=== PATIENT | male | born 1960 ===

== ENCOUNTER 2021-07-13 16:12 | Emergency (ER) | payer SELFPAY ==
[~2021-07-13] VITALS: Ht 167.6 cm; Wt 68.0 kg
[2021-07-13] MEDS ORDERED: SODIUM CHLORIDE 0.9% 1,000 ML IV ONE (16:30)
[2021-07-13 16:40] VITALS: BP 107/68
[2021-07-13 17:11] LABS: Basophils # (auto) 0 10 ^3/uL (0-0.2); Basophils % (auto) 0.8 % (0.0-2.0); Eosinophils # (auto) 0 10 ^3/uL (0-0.8); Eosinophils % (auto) 0.7 % (0.0-7.0); Hematocrit 40.7 % (41.0-53.0); Hemoglobin 13.5 g/dL (13.5-17.5); Lymphocytes # (auto) 1.6 10 ^3/uL (0.4-5.4); Lymphocytes % (auto) 32.1 % (10.0-50.0); Mean Corpuscular Hemoglobin 27.4 pg (28.0-32.0); Mean Corpuscular Hgb Conc. 33.1 g/dL (32.0-36.0); Mean Corpuscular Volume 82.6 fL (80.0-100.0); Monocytes # (auto) 0.3 10 ^3/uL (0-1.3); Monocytes % (auto) 6.5 % (0.0-12.0); Neutrophils # (auto) 2.9 10 ^3/uL (1.6-8.6); Neutrophils % (auto) 59.9 % (37.0-80.0); Nucleated Red Blood Cells % 0.1 %; Red Blood Cells 4.93 10^6/uL (4.5-5.90); Red Cell Distribution Width 15.6 % (11.8-14.3); White Blood Cell 4.9 10^3/uL (4.4-10.8)
[2021-07-13 17:34] LABS: Albumin 3.6 g/dL (3.4-5.0); Calcium 8.4 mg/dL (8.5-10.1); Potassium 3.9 mmol/L (3.5-5.1)
[2021-07-13 17:36] LABS: Amphetamine Screen, Urine NEGATIVE (NEGATIVE); Barbiturate Scree,Urine NEGATIVE (NEGATIVE); Benzodiazephine Screen, Urine NEGATIVE (NEGATIVE); Cannabinoid Screen, Urine NEGATIVE (NEGATIVE); Cocaine Screen, Urine NEGATIVE (NEGATIVE); Opiate Scree,Urine NEGATIVE (NEGATIVE); Phencyclidine Screen, Urine NEGATIVE (NEGATIVE)
[2021-07-13 17:39] LABS: BUN/Creatinine Ratio 13.2; Bilirubin, Total 0.4 mg/dL (0.2-1.0)
== END 2021-07-13 21:18 | disposition home or self-care (01) ==
LOC: EDBD 16:12 → ER 16:12
DX: F10.129 Alcohol abuse with intoxication, unspecified (principal); R51.9 Headache, unspecified; E11.9 Type 2 diabetes mellitus without complications; Y90.6 Blood alcohol level of 120-199 mg/100 ml
CPT/HCPCS: 36415; 70450; 80053; 80307; 80320; 85025; 96360; 96361; 99284; J7030

== ENCOUNTER 2023-08-19 10:14 | Emergency (ER) | payer SELFPAY ==
[~2023-08-19] VITALS: Ht 152.4 cm; Wt 67.1 kg
[2023-08-19 11:05] VITALS: TEMP 98.8
[2023-08-19 11:27] LABS: Basophils # (auto) 0 10 ^3/uL (0-0.2); Basophils % (auto) 0.5 % (0.0-2.0); Eosinophils # (auto) 0 10 ^3/uL (0-0.8); Eosinophils % (auto) 0.2 % (0.0-7.0); Hematocrit 41.1 % (41.0-53.0); Hemoglobin 13.8 g/dL (13.5-17.5); Mean Corpuscular Hemoglobin 28.7 pg (28.0-32.0); Mean Corpuscular Hgb Conc. 33.6 g/dL (32.0-36.0); Mean Corpuscular Volume 85.6 fL (80.0-100.0); Monocytes # (auto) 0.3 10 ^3/uL (0-1.3); Monocytes % (auto) 4.6 % (0.0-12.0); Neutrophils # (auto) 4.9 10 ^3/uL (1.6-8.6); Neutrophils % (auto) 78.7 % (37.0-80.0); Nucleated Red Blood Cells % 0.1 %; Red Cell Distribution Width 14.1 % (11.8-14.3); White Blood Cell 6.2 10^3/uL (4.4-10.8)
[2023-08-19 11:32] VITALS: PULSE 96; RESP 15; O2SAT 95
[2023-08-19] MEDS ORDERED: IOHEXOL 350 MG/ML 100ML IJ ONE (11:48)
[2023-08-19 11:56] LABS: Alanine Aminotransferase 17 U/L (7-40); Albumin 4.6 g/dL (3.2-4.8); Alkaline Phosphatase 97 U/L (46-116); Anion Gap 10 (5-15); Aspartate Aminotransferase 21 U/L (13-40); BUN/Creatinine Ratio 12.9 (10.0-20.0); Blood Urea Nitrogen 9 mg/dL (9-23); Calcium 9.4 mg/dL (8.5-10.1); Carbon Dioxide 26 mmol/L (20-30); Chloride 103 mmol/L (98-107); Glucose 219 mg/dL (74-106); Potassium 4.1 mmol/L (3.5-5.1); Sodium 139 mmol/L (136-145)
[2023-08-19 11:58] LABS: Bilirubin, Total 0.5 mg/dL (0.2-1.0); Total Protein 7.5 g/dL (5.7-8.2)
[2023-08-19] MEDS ORDERED: LORazepam 2MG/ML-1ML VIAL IV ONE ×2 (12:00)
[2023-08-19 12:17] LABS: INR 0.94 (0.9-1.15); Partial Thromboplastin Time 24.8 SEC (24.5-34.5); Prothrombin Time 9.9 sec (9.3-11.8)
[2023-08-19 12:37] LABS: Magnesium 1.9 mg/dL (1.6-2.6)
[2023-08-19 18:23] LABS: Amphetamine Screen, Urine Neg (NEGATIVE)
[2023-08-19 18:24] LABS: Barbiturate Scree,Urine Neg (NEGATIVE); Benzodiazephine Screen, Urine Neg (NEGATIVE); Cannabinoid Screen, Urine Neg (NEGATIVE); Cocaine Screen, Urine Neg (NEGATIVE); Opiate Scree,Urine Neg (NEGATIVE); Phencyclidine Screen, Urine Neg (NEGATIVE)
[2023-08-19 18:38] LABS: Urine Bacteria NONE SEEN /hpf (None Seen); Urine Blood Negative /uL (Negative); Urine Clarity Clear (Clear); Urine Color Yellow (Yellow); Urine Protein, UAD 1+ (Negative); Urine WBC <1 /hpf (0 - 3); Urine pH 8.5 (5.0-8.0)
[2023-08-19 18:51] LABS: Urine Specific Gravity > 1.030 (1.001-1.035)
[2023-08-19 19:00] VITALS: BP 121/67; PULSE 79; RESP 16; O2SAT 98
== END 2023-08-19 19:25 | disposition home or self-care (01) ==
LOC: ER 10:14
DX: F10.90 Alcohol use, unspecified, uncomplicated (principal); R20.2 Paresthesia of skin; E11.9 Type 2 diabetes mellitus without complications; Z79.899 Other long term (current) drug therapy; Y90.0 Blood alcohol level of less than 20 mg/100 ml
CPT/HCPCS: 36415; 70450; 70496; 71045; 80053; 80307; 80320; 81001; 82962; 83735; 83880; 84484; 85025; 85610; 85730; 93005; 96374; 99285; Q9967

== ENCOUNTER 2023-09-27 16:21 | Emergency (ER) | payer MEDICAID, OTHER ==
[~2023-09-27] VITALS: Ht 152.4 cm; Wt 68.3 kg
[2023-09-27 18:41] VITALS: BP 137/69; PULSE 87; RESP 15; TEMP 98.4; O2SAT 99
== END 2023-09-27 19:24 | disposition home or self-care (01) ==
LOC: ER 16:21
DX: K46.9 Unspecified abdominal hernia without obstruction or gangrene (principal); E11.9 Type 2 diabetes mellitus without complications